=== PATIENT | male | born 1945 | race Caucasian/White ===

== ENCOUNTER 2020-06-08 15:23 | Inpatient (IN) | payer OTHER, MEDICARE ==
[~2020-06-08] VITALS: Ht 170.2 cm; Wt 105.0 kg
[~2020-06-08 15:23] MED LIST: ATORVASTATIN CA80 M1 PO; FINA5; FURO20 PO; FURO40; HUMULIN 70100 UNIT/4 SC; HYDRA50 PO; LOSA50 PO; Novolin R100 UNIT/M SC; PACERONE100 M1 PO; POTCHL20ER PO
[2020-06-08 16:00] LABS: BASOPHILS ABSOLUTE AUTO 0.05 K/mm3 (0.00-0.23); BASOPHILS PERCENT AUTO 1 % (0-2); EOSINOPHILS ABSOLUTE AUTO 0.26 K/mm3 (0.00-0.68); EOSINOPHILS PERCENT AUTO 4 % (0-6); Hematocrit 35.2 % (37.0-53.0); IMMATURE GRAN ABSOLUTE AUTO 0.11 K/mm3 (0.00-0.10); IMMATURE GRAN PERCENT AUTO 2 % (0-1); LYMPHOCYTES ABSOLUTE AUTO 1.38 K/mm3 (0.84-5.20); LYMPHOCYTES PERCENT AUTO 20 % (21-46); MONOCYTES ABSOLUTE AUTO 0.62 K/mm3 (0.16-1.47); MONOCYTES PERCENT AUTO 9 % (4-13); Mean Corpuscular HGB Conc 31.3 g/dL (31.5-36.5); Mean Corpuscular Volume 96 fL (80-100); Mean Platelet Volume 11.9 fL (9.1-12.4); NEUTROPHILS ABSOLUTE AUTO 4.52 K/mm3 (1.96-9.15); NEUTROPHILS PERCENT AUTO 65 % (41-73); Platelet Count 152 K/mm3 (150-400); RDW Coefficient Variation 13.5 % (11.7-14.2); Red Blood Cell Count 3.67 M/mm3 (4.30-5.90); White Blood Cell Count 6.94 K/mm3 (4.00-11.30)
[2020-06-08 16:13] LABS: Albumin/Globulin Ratio 0.9 (0.8-1.8); Bilirubin, Total 0.3 mg/dL (0.1-1.0); Bun/Creatinine Ratio 23.6 (12.0-20.0); Calcium, Blood 8.9 mg/dL (8.5-10.1); Creatinine, Blood 1.44 mg/dL (0.60-1.20); Globulin, Blood 3.4 g/dL (2.2-4.0); Potassium, Blood 4.4 mmol/L (3.5-5.5); Total Protein, Blood 6.4 g/dL (6.4-8.2)
[2020-06-08 16:25] LABS: Source, Urine Clean Catch
[2020-06-08 16:29] LABS: Appearance, Urine Clear (Clear); Bilirubin, Urine Neg (Neg); Blood, Urine Neg (Neg); Color, Urine Yellow (P-Yellow); Glucose Qualitative, Urine Neg (Neg); Ketones, Urine Neg (Neg); Leukocyte Esterase, Urine Neg (Neg); Nitrite, Urine Neg (Neg); Protein, Urine 2+ (Neg); Specific Gravity, Urine 1.015 (1.003-1.022); Urobilinogen, Urine NORM (Normal)
[2020-06-08 16:37] LABS: Bacteria Rare /hpf; Red Blood Cells, Urine 0-2 /hpf (0-2); Squamous Epithelial Cells Few /hpf (Few); White Blood Cells, Urine 0-2 /hpf (0-5)
[2020-06-08 16:40] LABS: U Amphetamine Screen Not Detected; U Barbituate Screen Not Detected; U Benzodiazapine Screen Not Detected; U Buprenorphine Screen Not Detected; U Cannabinoids Screen DETECTED; U Cocaine Screen Not Detected; U Methadone Screen Not Detected; U Methamphetamine Screen Not Detected; U Opiates Screen Not Detected; U Oxycodone Screen Not Detected; U Phencyclidine Screen Not Detected; U Propoxyphene Screen Not Detected
[2020-06-08] MEDS ORDERED: POTA10T PO (21:09)
[2020-06-08] MEDS ORDERED: ALOGLIPTIN12.5 M1 PO (21:13)
[2020-06-08] MEDS ORDERED: METF500C PO (21:16)
[2020-06-08] MEDS ORDERED: VENL150ER PO (21:17)
--- NOTE | 2020-06-08 21:18 | NUR ---
ADMIT PT ARRIVED TO FLOOR AROUND 2044, SLIDE TRANSFER TO BED. ORIENTED TO RM & CALL LIGHT. WILL MONITOR.
[2020-06-08] MEDS ORDERED: GABA300 PO (22:01)
[2020-06-08] MEDS ORDERED: TRAZ100 PO (22:01)
[2020-06-08] MEDS ORDERED: STIOLTO RESPIMAT4 G1 INH (22:03)
[2020-06-09 04:40] LABS: Hematocrit 34.8 % (37.0-53.0); Mean Corpuscular HGB 29.8 pg (26.0-34.0); Mean Corpuscular HGB Conc 31.6 g/dL (31.5-36.5); Mean Corpuscular Volume 94 fL (80-100); Mean Platelet Volume 11.8 fL (9.1-12.4); Platelet Count 151 K/mm3 (150-400); RDW Coefficient Variation 13.3 % (11.7-14.2); RDW Standard Deviation 46.7 fL (35.1-46.3); Red Blood Cell Count 3.69 M/mm3 (4.30-5.90); White Blood Cell Count 5.38 K/mm3 (4.00-11.30)
--- NOTE | 2020-06-09 04:43 | NUR ---
SHIFT SUMMARY AOX4. FOLLOWS DIRECTIONS, ANSWERS QUESTIONS APPROPRIATE. NO SLURRED SPEECH SINCE ARRIVING TO FLOOR. DENIES FACIAL WEAKNESS, NO FACIAL DROOP. L HAND REGIONAL PROPERTY MANAGER SLIGHTLY WEAKER THEN R LAST NIGHT & PT REPORTS HE FEELS A LITTLE WEAKER L ARM, EQUAL PEDAL PUSHES. VSS. TELE SB @58. REPORTS 2/10 R HIP SCIATIC PAIN, STATES HE TAKES 300MG GABAPENTIN FOR THIS, INFORMED ELAINE W & SHE ORDERED 1X DOSE GABAPENTIN. DENIES N/V OR DYSPNEA. HS CBG @94. PT PLANNED TO HAVE MRI, ECHO & SPEECH EVAL THIS AM. PT HASNT SHOWN S/S CHOKING/ASPIRATING c PO INTAKE. CALL LIGHT IN REACH & PT ABLE TO MAKE NEEDS KNOWN, WCTM.
[2020-06-09 05:00] LABS: Anion Gap 4 mmol/L (6-16); Blood Urea Nitrogen 30 mg/dL (8-24); Bun/Creatinine Ratio 22.6 (12.0-20.0); CHOL/HDL RATIO 3.2; CO2, Blood 30 mmol/L (21-32); Calcium, Blood 8.6 mg/dL (8.5-10.1); Chloride, Blood 112 mmol/L (98-108); Cholesterol 119 mg/dL (50-200); Creatinine, Blood 1.33 mg/dL (0.60-1.20); Glomerular Filtration Rate 55 (60-); Glucose, Blood 92 mg/dL (70-99); HDL Cholesterol 37 mg/dL (>39); LDL/HDL RATIO 1.7; Low Density Lipoprotein Chol 61 mg/dL (0-110); Potassium, Blood 4.4 mmol/L (3.5-5.5); Sodium, Blood 146 mmol/L (136-145); Triglycerides 104 mg/dL (30-160); Very Low Density Lipoprot Chol 20 mg/dL (6-32)
--- NOTE | 2020-06-09 10:18 | NUR ---
1015 SPOKE WITH PTS DAUGHTER . SHE STATED HER FATHER TOOK BOTH GABAPENTIN AND TRAZODONE PRIOR TO HAVING HIS EPISODE OF SLURRED SPEACH. PT HAS BEEN TAKING TRAZADONE AT NIGHT AND JUST STARTED THE GABAPENTIN. HE TOOK 200MG OF TRAZADONE AND 300 OF GABAPENTIN AT BEDTIME. PT HAS NO NEURO DEFICITS AT THIS TIME , NO SLURRED SPEACH. LEFT MARKETING AND OUTREACH COORDINATOR SLIGHTLY WEAKER THAN RIGHT WHICH IS BASELINE FOR PT D/T BRAIN BLEED FROM 03/12.
--- NOTE | 2020-06-09 11:10 | NUR ---
Echocardiogram completed.
[2020-06-09] MEDS ORDERED: ASPI81CH PO (14:08)
--- NOTE | 2020-06-09 14:17 | NUR ---
1415 PT TO DISCHARGE HOME. IV REMOVED. NO SS OF INFECTION NOTED. NURSE EDUCATED ON MEDICATIONS. PT [facility] FOLLOW [facility] WITH [facility].PT TAKEN DOWN BY WC WITH STAFF AND TAKEN HOME BY DAUGHTER.
== END 2020-06-09 14:16 | disposition home or self-care (01) | DRG 92 ==
LOC: ER 15:23 → MEDS 20:00
PROVIDERS: Emergency Medicine; ADMIT Internal Medicine
DX: R47.81 Slurred speech (principal); I69.254 Hemiplegia and hemiparesis following other nontraumatic intracranial hemorrhage affecting left non-dominant side; R53.1 Weakness; I48.0 Paroxysmal atrial fibrillation; Z66 Do not resuscitate; T43.215A Adverse effect of selective serotonin and norepinephrine reuptake inhibitors, initial encounter; T42.6X5A Adverse effect of other antiepileptic and sedative-hypnotic drugs, initial encounter; Z68.37 Body mass index [BMI] 37.0-37.9, adult; E66.9 Obesity, unspecified; I25.10 Atherosclerotic heart disease of native coronary artery without angina pectoris; E11.22 Type 2 diabetes mellitus with diabetic chronic kidney disease; E11.51 Type 2 diabetes mellitus with diabetic peripheral angiopathy without gangrene; N18.30 Chronic kidney disease, stage 3 unspecified; J44.9 Chronic obstructive pulmonary disease, unspecified; G47.33 Obstructive sleep apnea (adult) (pediatric); I25.2 Old myocardial infarction; I12.9 Hypertensive chronic kidney disease with stage 1 through stage 4 chronic kidney disease, or unspecified chronic kidney disease; F43.10 Post-traumatic stress disorder, unspecified; N40.0 Benign prostatic hyperplasia without lower urinary tract symptoms; Z79.4 Long term (current) use of insulin; Z79.899 Other long term (current) drug therapy; Z87.891 Personal history of nicotine dependence; Z95.1 Presence of aortocoronary bypass graft; Z88.8 Allergy status to other drugs, medicaments and biological substances; X58.XXXA Exposure to other specified factors, initial encounter
CPT/HCPCS: 36415; 51701; 70450; 70496; 70498; 70551; 80048; 80053; 80061; 81001; 82947; 83036; 83735; 85025; 85027; 92610; 93005; 93010; 93306; 97116; 97161; 97530; 99285-25; A9270; J1650; Q9967

== ENCOUNTER 2020-10-16 19:44 | Emergency (ER) | payer OTHER, MEDICARE ==
[~2020-10-16] VITALS: Ht 170.2 cm; Wt 104.3 kg
[~2020-10-16 19:44] MED LIST changes: +ALOGLIPTIN12.5 M1 PO; +ASPI81CH PO; +GABA300 PO; +METF500C PO; +POTA10T PO; +STIOLTO RESPIMAT4 G1 INH; +TRAZ100 PO; +VENL150ER PO
== END 2020-10-16 22:22 | disposition left against medical advice (07) ==
LOC: ER 19:44
DX: S09.91XA Unspecified injury of ear, initial encounter (principal); Z53.21 Procedure and treatment not carried out due to patient leaving prior to being seen by health care provider; X58.XXXA Exposure to other specified factors, initial encounter
CPT/HCPCS: 99282

== ENCOUNTER 2021-06-03 14:46 | Emergency (ER) | payer OTHER ==
[~2021-06-03] VITALS: Ht 170.2 cm; Wt 100.7 kg
[~2021-06-03 14:46] MED LIST changes: +ATOR40TA PO; -ATORVASTATIN CA80 M1 PO; +KLOR-CON 1010 ME6 PO; -POTCHL20ER PO
[2021-06-03 15:26] LABS: Hematocrit 32.9 % (37.0-53.0); Hemoglobin 10.8 g/dL (13.5-17.5); Mean Corpuscular HGB 31.5 pg (26.0-34.0); Mean Corpuscular HGB Conc 32.8 g/dL (31.5-36.5); Mean Corpuscular Volume 96 fL (80-100); Mean Platelet Volume 11.7 fL (9.1-12.4); Platelet Count 161 K/mm3 (150-400); RDW Coefficient Variation 13.6 % (11.7-14.2); RDW Standard Deviation 47.9 fL (35.1-46.3); Red Blood Cell Count 3.43 M/mm3 (4.30-5.90); White Blood Cell Count 12.94 K/mm3 (4.00-11.30)
[2021-06-03 15:44] LABS: Albumin, Blood 2.4 g/dL (3.4-5.0); Albumin/Globulin Ratio 0.7 (0.8-1.8); Bilirubin, Total 0.6 mg/dL (0.1-1.0); Bun/Creatinine Ratio 21.6 (12.0-20.0); Calcium, Blood 8.4 mg/dL (8.5-10.1); Creatinine, Blood 1.9 mg/dL (0.60-1.20); Globulin, Blood 3.3 g/dL (2.2-4.0); Potassium, Blood 3.9 mmol/L (3.5-5.5); Total Protein, Blood 5.7 g/dL (6.4-8.2)
[2021-06-03] MEDS ORDERED: CENTRUM SILVER1 EAC2 PO (15:49)
[2021-06-03] MEDS ORDERED: FERROUS GLUCON324 M2 PO (15:49)
[2021-06-03] MEDS ORDERED: FOLI1 PO (15:50)
[2021-06-03] MEDS ORDERED: ASCO500 PO (15:50)
[2021-06-03 15:54] LABS: BASOPHILS ABSOLUTE MAN 0.12 K/mm3 (0.00-0.23); BASOPHILS PERCENT MAN 1 % (0-2); EOSINOPHILS ABSOLUTE MAN 0.25 K/mm3 (0.00-0.68); EOSINOPHILS PERCENT MAN 2 % (0-6); LYMPHOCYTES ABSOLUTE MAN 1.29 K/mm3 (0.84-5.20); LYMPHOCYTES PERCENT MAN 10 % (21-46); METAMYELOCYTE ABSOLUTE MAN 0.12 K/mm3 (0.00-0.00); METAMYELOCYTE PERCENT MAN 1 % (0-0); MONOCYTES ABSOLUTE MAN 1.68 K/mm3 (0.16-1.47); MONOCYTES PERCENT MAN 13 % (4-13); MYELOCYTE ABSOLUTE MAN 0.25 K/mm3 (0.00-0.00); MYELOCYTE PERCENT MAN 2 % (0-0); NEUTROPHILS ABSOLUTE MAN 9.18 K/mm3 (1.96-9.15); SEG NEUTROPHILS PERCENT MAN 71 % (41-73); TOTAL CELLS COUNTED 100
[2021-06-03 17:53] LABS: Source, Urine Clean Catch
[2021-06-03 17:57] LABS: Appearance, Urine Clear (Clear); Bilirubin, Urine Neg (Neg); Blood, Urine Neg (Neg); Color, Urine Yellow (P-Yellow); Glucose Qualitative, Urine Neg (Neg); Ketones, Urine Neg (Neg); Leukocyte Esterase, Urine Neg (Neg); Nitrite, Urine Neg (Neg); Protein, Urine 3+ (Neg); Urobilinogen, Urine NORM (Normal)
[2021-06-03 18:24] LABS: Bacteria Mod /hpf
[2021-06-03 18:25] LABS: Amorphous Light (0-Heavy); Red Blood Cells, Urine Not Seen /hpf (0-2); Squamous Epithelial Cells Rare /hpf (Few); White Blood Cells, Urine Rare /hpf (0-5)
[2021-06-03] MEDS ORDERED: METR500 PO (19:14)
[2021-06-03] MEDS ORDERED: AMOX-CLAV 875-1 EAC1 PO (19:22)
[2021-06-03] MEDS ORDERED: ALEVAZOL56.7 G1 TOP (19:27)
== END 2021-06-03 19:55 | disposition home or self-care (01) ==
LOC: ER 14:46
PROVIDERS: Student in an Organized Health Care Education/Training Program
DX: R19.7 Diarrhea, unspecified (principal); E11.9 Type 2 diabetes mellitus without complications; J44.9 Chronic obstructive pulmonary disease, unspecified; I25.2 Old myocardial infarction; Z87.891 Personal history of nicotine dependence; Z79.899 Other long term (current) drug therapy; Z88.5 Allergy status to narcotic agent; Z88.8 Allergy status to other drugs, medicaments and biological substances
CPT/HCPCS: 36415; 74177; 80053; 81001; 85025; 87086; 93005; 93010; 99284-25; A9270; J7030; Q9967

== ENCOUNTER 2021-06-04 12:14 | Inpatient (IN) | payer OTHER ==
[~2021-06-04] VITALS: Ht 170.2 cm; Wt 58.1 kg
[~2021-06-04 12:14] MED LIST changes: +ALEVAZOL56.7 G1 TOP; +AMOX-CLAV 875-1 EAC1 PO; +ASCO500 PO; +CENTRUM SILVER1 EAC2 PO; +FERROUS GLUCON324 M2 PO; +FOLI1 PO; +METR500 PO
[2021-06-04 12:56] LABS: Hemoglobin 11.4 g/dL (13.5-17.5); Mean Corpuscular HGB 31.2 pg (26.0-34.0); Mean Corpuscular HGB Conc 31.7 g/dL (31.5-36.5); Mean Corpuscular Volume 99 fL (80-100); Mean Platelet Volume 11.4 fL (9.1-12.4); Platelet Count 167 K/mm3 (150-400); RDW Coefficient Variation 13.8 % (11.7-14.2); RDW Standard Deviation 50.4 fL (35.1-46.3); Red Blood Cell Count 3.65 M/mm3 (4.30-5.90)
[2021-06-04 13:11] LABS: Albumin, Blood 2.3 g/dL (3.4-5.0); Albumin/Globulin Ratio 0.6 (0.8-1.8); Bilirubin, Total 0.5 mg/dL (0.1-1.0); Calcium, Blood 8.2 mg/dL (8.5-10.1); Globulin, Blood 3.6 g/dL (2.2-4.0); Potassium, Blood 3.9 mmol/L (3.5-5.5); Total Protein, Blood 5.9 g/dL (6.4-8.2)
[2021-06-04 13:18] LABS: BAND PERCENT MAN 9 % (0-8); BASOPHILS ABSOLUTE MAN 0.36 K/mm3 (0.00-0.23); BASOPHILS PERCENT MAN 2 % (0-2); EOSINOPHILS ABSOLUTE MAN 0.36 K/mm3 (0.00-0.68); EOSINOPHILS PERCENT MAN 2 % (0-6); LYMPHOCYTES ABSOLUTE MAN 1.44 K/mm3 (0.84-5.20); LYMPHOCYTES PERCENT MAN 8 % (21-46); METAMYELOCYTE ABSOLUTE MAN 0.18 K/mm3 (0.00-0.00); METAMYELOCYTE PERCENT MAN 1 % (0-0); MONOCYTES ABSOLUTE MAN 1.44 K/mm3 (0.16-1.47); MONOCYTES PERCENT MAN 8 % (4-13); MYELOCYTE ABSOLUTE MAN 0.18 K/mm3 (0.00-0.00); MYELOCYTE PERCENT MAN 1 % (0-0); NEUTROPHILS ABSOLUTE MAN 14.11 K/mm3 (1.96-9.15); SEG NEUTROPHILS PERCENT MAN 69 % (41-73); TOTAL CELLS COUNTED 100
[2021-06-04 18:04] LABS: Influenza A, PCR NEGATIVE (NEGATIVE); Influenza B, PCR NEGATIVE (NEGATIVE); Resp Syncytial Virus, PCR NEGATIVE (NEGATIVE); SARS-Cov-2 (COVID-19) PCR, MMC NEGATIVE (NEGATIVE)
[2021-06-05 04:06] LABS: BASOPHILS PERCENT AUTO 1 % (0-2); EOSINOPHILS ABSOLUTE AUTO 0.35 K/mm3 (0.00-0.68); EOSINOPHILS PERCENT AUTO 2 % (0-6); Hematocrit 32.3 % (37.0-53.0); Hemoglobin 10.5 g/dL (13.5-17.5); IMMATURE GRAN ABSOLUTE AUTO 0.28 K/mm3 (0.00-0.10); IMMATURE GRAN PERCENT AUTO 2 % (0-1); LYMPHOCYTES ABSOLUTE AUTO 0.97 K/mm3 (0.84-5.20); LYMPHOCYTES PERCENT AUTO 6 % (21-46); MONOCYTES ABSOLUTE AUTO 1.85 K/mm3 (0.16-1.47); MONOCYTES PERCENT AUTO 12 % (4-13); Mean Corpuscular HGB 31.3 pg (26.0-34.0); Mean Corpuscular HGB Conc 32.5 g/dL (31.5-36.5); Mean Corpuscular Volume 96 fL (80-100); Mean Platelet Volume 11.2 fL (9.1-12.4); NEUTROPHILS PERCENT AUTO 77 % (41-73); Platelet Count 169 K/mm3 (150-400); RDW Coefficient Variation 13.6 % (11.7-14.2); RDW Standard Deviation 48.3 fL (35.1-46.3); Red Blood Cell Count 3.36 M/mm3 (4.30-5.90); White Blood Cell Count 15.55 K/mm3 (4.00-11.30)
--- NOTE | 2021-06-05 04:11 | NUR ---
SHIFT SUMMARY PT HAD A MOSTLY UNEVENTFUL NIGHT. SLEPT OFF AND ON THROUGHOUT THE NIGHT. UNHAPPY ABOUT CLEAR LIQUID DIET BUT OTHERWISE PT HAD NO COMPLAINTS. DENIES ANY PAIN OR NAUSEA. PT REPORTS HAVING DIARRHEA X 3 WEEKS AT HOME. NO BOWEL MOVEMENTS THIS EVENING. ON CONTACT PRECAUTIONS FOR RULE OUT CDIFF. PT VERY WEAK. LITTLE MOBILITY IN LEFT SIDE DUE TO PREVIOUS STROKE. INCONTINENT/CONTINENT OF URINE. PT REMAINED IN BED. TURNED Q 2 HRS. VITAL SIGNS STABLE. BIPAP PLACED BY RT PT USES A CPAP AT HOME AND DID NOT BRING HIS IN.
[2021-06-05 04:25] LABS: Albumin, Blood 2.1 g/dL (3.4-5.0); Albumin/Globulin Ratio 0.7 (0.8-1.8); Bilirubin, Total 0.4 mg/dL (0.1-1.0); Bun/Creatinine Ratio 18.3 (12.0-20.0); Calcium, Blood 7.7 mg/dL (8.5-10.1); Creatinine, Blood 2.02 mg/dL (0.60-1.20); Globulin, Blood 3.1 g/dL (2.2-4.0); Potassium, Blood 3.7 mmol/L (3.5-5.5); Total Protein, Blood 5.2 g/dL (6.4-8.2)
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
--- NOTE | 2021-06-05 17:59 | NUR ---
SHIFT SUMMARY- PT IS PLESATN AND COOPERATIVE. HE IS CONFUSED THIS SHIFT. HE IS EATING AND DRINKING WELL. HE IS USING THE URINAL WITH ASSISTANCE. HIS FAMILY HAS VISITED THROUGHOUT THIS SHIFT. HE SLEPT INTERMITENTLY. HIS DAUGHTER REMOVED HIS RINGS DUE TO SWELLING IN HIS FINGERS. HIS BED IS IN THE LOW POSITON AND CALL LIGHT IS WITIN REACH.
[2021-06-06 04:39] LABS: Hematocrit 32.4 % (37.0-53.0); Hemoglobin 10.5 g/dL (13.5-17.5); Mean Corpuscular HGB 30.8 pg (26.0-34.0); Mean Corpuscular HGB Conc 32.4 g/dL (31.5-36.5); Mean Corpuscular Volume 95 fL (80-100); Mean Platelet Volume 11.1 fL (9.1-12.4); Platelet Count 174 K/mm3 (150-400); RDW Coefficient Variation 13.7 % (11.7-14.2); RDW Standard Deviation 47.8 fL (35.1-46.3); Red Blood Cell Count 3.41 M/mm3 (4.30-5.90); White Blood Cell Count 16.58 K/mm3 (4.00-11.30)
--- NOTE | 2021-06-06 04:48 | NUR ---
SHIFT SUMMARY PT APPEARS MORE CONFUSED THIS EVENING COMPARED TO THE NIGHT BEFORE. REACHING IN THE AIR FOR THINGS AT TIMES THAT ARE NOT THERE. UNSURE OF WHERE HE IS. PT HAS NO COMPLAINTS OTHER THAN STATING THAT HE TAKES CBD AT HOME AND IS NOT RECEIVING IT HERE. PT DENIES ANY PAIN. SLEPT INTERMITTENTLY. APPEARS SOB AT TIMES BUT DENIES IT. CPAP ON AT NOC. FLACCID ON L SIDE. SOME REDNESS TO PANNUS FOLDS. ANTIFUNGAL CREAM APPLIED. PT ONLY VOIDED ONCE THIS EVENING. BLADDER SCAN READING 338 ML. PT ENCOURAGED TO VOID AFTER AND WAS ABLE TO VOID 275 ML. URINE IS CONCENTRATED. VITAL SIGNS STABLE. PT HAD AN UNEVENTFUL NIGHT.
[2021-06-06 04:59] LABS: Albumin, Blood 1.9 g/dL (3.4-5.0); Anion Gap 8 mmol/L (6-16); Blood Urea Nitrogen 40 mg/dL (8-24); Bun/Creatinine Ratio 19.3 (12.0-20.0); CO2, Blood 20 mmol/L (21-32); Chloride, Blood 111 mmol/L (98-108); Creatinine, Blood 2.07 mg/dL (0.60-1.20); Glomerular Filtration Rate 31 (60-); Glucose, Blood 119 mg/dL (70-99); Phosphorus, Blood 3.3 mg/dL (2.5-4.9); Sodium, Blood 139 mmol/L (136-145)
[2021-06-06 06:07] LABS: BAND PERCENT MAN 12 % (0-8); BASOPHILS PERCENT MAN 0 % (0-2); EOSINOPHILS ABSOLUTE MAN 0.49 K/mm3 (0.00-0.68); EOSINOPHILS PERCENT MAN 3 % (0-6); LYMPHOCYTES ABSOLUTE MAN 1.32 K/mm3 (0.84-5.20); LYMPHOCYTES PERCENT MAN 8 % (21-46); METAMYELOCYTE ABSOLUTE MAN 0.33 K/mm3 (0.00-0.00); METAMYELOCYTE PERCENT MAN 2 % (0-0); MONOCYTES ABSOLUTE MAN 1.49 K/mm3 (0.16-1.47); MONOCYTES PERCENT MAN 9 % (4-13); NEUTROPHILS ABSOLUTE MAN 12.93 K/mm3 (1.96-9.15); SEG NEUTROPHILS PERCENT MAN 66 % (41-73); TOTAL CELLS COUNTED 100
--- NOTE | 2021-06-06 15:02 | NUR ---
SHIFT SUMMARY PT AWAKE AT START OF SHIFT, RECEIVING RT TX. PT WEAK AND SOMETIMES SLOW TO RESPOND. L SIDE WEAKNESS NOTED. PT STATES THAT HE CAN MOVE HIS L ARM, BUT NO MOVEMENT NOTED. DR STAHL IN TO SEE PT AND WANTING PT TO GET OOB AND UP TO CHAIR. PT'S EQUIPMENT MECHANIC HERE TO SEE PT, REPORTING THAT PT IS MOBILE AT HOME AND ABLE TO AMBULATE WITH AND WITHOUT FWW. PT/OT ORDERED AND HERE TO SEE PT AT LUNCH. PT/OT UNABLE TO GET PT OOB. PT NOT EVEN ABLE TO SIT UP TO EOB ON HIS OWN. PT'S DAUGHTER TO BE NOTIFIED FOR CLARIFICATION. NO C/O PAIN. LUNGS T/O DIMINISHED WITH SCATTERED EXP WHEEZES. IVF'S INFUSING PER EMAR. PT IS PLEASANT AND CO-OP WITH CARE. DENIES FURTHER NEEDS AT THIS TIME. CALL LT IN REACH.
--- NOTE | 2021-06-06 15:26 | NUR ---
DAUGHTER NOTIFIED FOR CLARIFICATION ON PT'S ABILITY TO AMBULATE. DAUGHTER REPORTED PT ABLE TO STAND, GET IN TRUCK, AND WALK UP STAIRS PRIOR TO DIARRHEA AND ADMISSION. PER SHIFT REPORT, PT HAD DIARRHEA X3 WEEKS BEFORE ADMISSION. DAUGHTER REPORTED THAT BY 4TH DAY OF DIARRHEA, PT HAS BEEN BED BOUND AND NONAMBULATORY. PT BECAME TOO WEAK AND DEHYDRATED WITH DIARRHEA TO GET OOB.
[2021-06-07 05:02] LABS: Hemoglobin 10.9 g/dL (13.5-17.5); Mean Corpuscular HGB 31.1 pg (26.0-34.0); Mean Corpuscular Volume 94 fL (80-100); Mean Platelet Volume 11.4 fL (9.1-12.4); Platelet Count 211 K/mm3 (150-400); RDW Coefficient Variation 13.9 % (11.7-14.2); RDW Standard Deviation 47.7 fL (35.1-46.3); White Blood Cell Count 18.64 K/mm3 (4.00-11.30)
--- NOTE | 2021-06-07 05:15 | NUR ---
IN STORE REPRESENTATIVE SUMMARY ADMITTED FOR ACUTE KIDNEY FAILURE. PT IS A FULL CODE. 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 PT IS ALERT AND ORIENTED X3-4. 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 HE HAS NOT HAD A BM SINCE ADMISSION. HE IS INCONTINENT OF URINE. PT CURRENTLY ON BEDREST.
[2021-06-07 05:22] LABS: Albumin, Blood 1.9 g/dL (3.4-5.0); Anion Gap 6 mmol/L (6-16); Blood Urea Nitrogen 39 mg/dL (8-24); Bun/Creatinine Ratio 25.3 (12.0-20.0); CO2, Blood 21 mmol/L (21-32); Calcium, Blood 8.1 mg/dL (8.5-10.1); Chloride, Blood 114 mmol/L (98-108); Creatinine, Blood 1.54 mg/dL (0.60-1.20); Glomerular Filtration Rate 44 (60-); Glucose, Blood 162 mg/dL (70-99); Phosphorus, Blood 3.1 mg/dL (2.5-4.9); Potassium, Blood 4.2 mmol/L (3.5-5.5); Sodium, Blood 141 mmol/L (136-145)
[2021-06-07 05:45] LABS: BAND PERCENT MAN 6 % (0-8); BASOPHILS PERCENT MAN 0 % (0-2); EOSINOPHILS ABSOLUTE MAN 0.55 K/mm3 (0.00-0.68); EOSINOPHILS PERCENT MAN 3 % (0-6); LYMPHOCYTES PERCENT MAN 7 % (21-46); MONOCYTES ABSOLUTE MAN 0.37 K/mm3 (0.16-1.47); MONOCYTES PERCENT MAN 2 % (4-13); MYELOCYTE ABSOLUTE MAN 0.18 K/mm3 (0.00-0.00); MYELOCYTE PERCENT MAN 1 % (0-0); NEUTROPHILS ABSOLUTE MAN 16.21 K/mm3 (1.96-9.15); SEG NEUTROPHILS PERCENT MAN 81 % (41-73); TOTAL CELLS COUNTED 100
[2021-06-07] MEDS ORDERED: FAMO40 PO (07:54)
--- NOTE | 2021-06-07 14:49 | NUR ---
SHIFT SUMMARY PT RESTING QUIETLY AT START OF SHIFT. WOKE EASILY FOR CARE. VERY WEAK AND DECONDITIONED WITH L SIDE FLACCID. PT IS MORBIDLY OBESE AND UNABLE TO MOVE MUCH AT ALL; LEANS TO R SIDE IN BED. HEAVY CARE TO STRAIGHTEN AND REPOSITION. INCONTINENT OF BLADDER. BOWEL CARE ORDERED AND GIVEN. PT ASSISTED TO BED OSMAN W/O SUCCESS. IVF'S STOPPED. PT DRINKING WELL. ABLE TO EAT ON HIS OWN, THOUGH MESSY AT TIMES. LUNGS T/O DIMINISHED WITH INSP/EXP WHEEZES. C/O "HEART BURN" THIS AM AND REPORTED THAT HE USUALLY TAKES PEPCID. DR HENDERSON NOTIFIED. NEW ORDERS PLACED. DR HENDERSON IN TO SEE PT AND DISCUSS PLAN OF CARE. CONSULT ORDERED AND CALLED TO DR GARVEY'S OFFICE AND ANS. OFFICE HELP UNABLE TO GIVE CONSULT TO DR GARVEY. ANS CALLED AND WILL NOTIFY DR GARVEY TODAY. PT DENIED FURTHER NEEDS. CALL LT IN REACH. ABLE TO MAKE NEEDS KNOWN.
--- NOTE | 2021-06-07 20:10 | NUR ---
BED BATH AND LINEN CHANGE GIVEN AFTER BREAKFAST. LATER THIS AFTERNOON, PT STARTED VOMITING WHAT APPEARED TO BE BROWN COFFEE GROUND EMESIS; SIGNIFICANT ABOUT OF EMESIS. PT CLEANED AND CHANGED AGAIN. PT FEELING BETTER FOR A WHILE, BUT DECLINED TO EAT DINNER. PT THEN STARTED VOMITING BROWN COFFEE GROUND EMESIS AGAIN DURING SHIFT CHANGE; ABOUT 300cc. PT CLEANED AND GIVEN EMESIS BAG. REPORT GIVEN TO ONCOMING RN.
--- NOTE | 2021-06-08 03:20 | NUR ---
PSYCHIATRIST SUMMARY PATIENT HAD A FAIR SHIFT. STILL VOMITING FECAL LOOKING VOMITUS. ABDOMINAL SOUNDS VERY FAINT. HAD PAIN MED NEEDED. V/S CHECKED AND RECORDED. WILL CONTINUE TO MONIOTR HER.
[2021-06-08 05:00] LABS: Hematocrit 35.5 % (37.0-53.0); Hemoglobin 11.7 g/dL (13.5-17.5); Mean Corpuscular HGB 30.8 pg (26.0-34.0); Mean Corpuscular Volume 93 fL (80-100); Mean Platelet Volume 10.6 fL (9.1-12.4); Platelet Count 268 K/mm3 (150-400); White Blood Cell Count 17.88 K/mm3 (4.00-11.30)
[2021-06-08 05:31] LABS: Bun/Creatinine Ratio 35.1 (12.0-20.0); Calcium, Blood 8.7 mg/dL (8.5-10.1); Creatinine, Blood 1.51 mg/dL (0.60-1.20); Potassium, Blood 4.5 mmol/L (3.5-5.5)
[2021-06-08 08:11] LABS: IMMUNOGLOBULIN A, QN, SERUM 316 mg/dL (61-437); IMMUNOGLOBULIN G, QN, SERUM 664 mg/dL (603-1613); IMMUNOGLOBULIN M, QN, SERUM 75 mg/dL (15-143)
--- NOTE | 2021-06-08 11:15 | NUR ---
NG TUBE PLACED PER MD ORDER IN L NARE. INTIALLY 600ML'S OF DARK BROWN OUTPUT WAS SUCTIONED OUT. PATIENT PLACED ON LOW INTERMITTENT SUCTION. PATIENT TOLERATED WELL.
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
--- NOTE | 2021-06-08 19:57 | NUR ---
END OF SHIFT NOTE: THE PATIENT STARTED THE SHIFT OUT WITH NAUSEA AND ABDOMINAL DISCOMFORT. NG TUBE PLACED PER ORDERS. PATIENT VOMITED THROUGHOUT PLACEMENT (DARK BROWN, THICK, FOUL SMELLING). PATIENT HAD 750 ML OUTPUT THROUGH THE NG TUBE BEFORE HE PULLED IT. PATIENT DENIED NAUSEA FOR THE REST OF THE SHIFT. PATIENT'S ABDOMINAL DISTENTION DECREASED ONCE THE NG TUBE WAS PLACED. HOWEVER, ONCE IT WAS PULLED, THE DISTENTION STARTED TO INCREASE. BY THE END OF SHIFT, PATIENT REPORT ABDOMINAL DISCOMFORT AGAIN. RELATED TO PRN BLOOD PRESSURE ORDERS, PATIENT REQUIRED TELEMETRY. NEAR THE END OF SHIFT TELEMETRY CALLED TO NOTIFY RN OF NEED FOR REPEAT EKG. NOTIFIED DR. HENDERSON AND RECEIVED ORDER. PATIENT DENIED CHEST PAIN OR SHORTNESS OF BREATH THROUGHOUT. EKG OBTAINED. COMPARED TO PRIOR EKG. 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 WOOL WASHING MACHINE OPERATOR RN NOTIFIED. PATIENT HAD NO BOWEL MOVEMENTS. DIFFICULT TO ASSESS IF THE PATIENT IS PASSING FLATUS (PATIENT SAYS THAT HE IS).
[2021-06-09 04:30] LABS: Hematocrit 29.9 % (37.0-53.0); Hemoglobin 9.9 g/dL (13.5-17.5); Mean Corpuscular HGB 30.9 pg (26.0-34.0); Mean Corpuscular HGB Conc 33.1 g/dL (31.5-36.5); Mean Corpuscular Volume 93 fL (80-100); Mean Platelet Volume 11.1 fL (9.1-12.4); Platelet Count 204 K/mm3 (150-400); RDW Coefficient Variation 14.1 % (11.7-14.2); RDW Standard Deviation 47.6 fL (35.1-46.3); White Blood Cell Count 13.18 K/mm3 (4.00-11.30)
[2021-06-09 04:42] LABS: Bun/Creatinine Ratio 42.1 (12.0-20.0); Calcium, Blood 8.2 mg/dL (8.5-10.1); Creatinine, Blood 1.45 mg/dL (0.60-1.20); Potassium, Blood 4.3 mmol/L (3.5-5.5)
--- NOTE | 2021-06-09 06:46 | NUR ---
TRAFFIC CIRCUIT ENGINEER SUMMARY PATIENT HAD A FAIR SHIFT. INITIALLY DID NOT COMPLAIN OF PAIN OR NAUSEA. BUT EARLY THIS MORNING HE STATED HE WAS IN PAIN, THE PRODUCT DEVELOPMENT WORKER ALREADY GOT ORDER FOR PAIN AND SO HE GOT THAT AND NGT WAS RE-INSERTED AND IT DRAINED ABOUT 300 BILIOUS AFFLUENT. HE GOT RELIEVED AND HE PULLED THE NGT OUT AGAIN. WILL CONTINUE TO MONITOR HIM.
--- NOTE | 2021-06-09 12:27 | NUR ---
A FRIEND OF PATIENT NAMED FLORA CALLED AND REPORTED THAT THE [employer] WANTED TO SPEAK WITH PATIENT. THE LADY (Flora) STATED THAT THE BANK WAS CONCERNED ABOUT HIS DAUGHTER ALSO NAMED FLORA, FORGING CHECKS. SHE LEFT A NUMBER [phone] FOR [facility].THIS PROCESS CONTROL PROGRAMMER NOTIFIED THE CHARGE NURSE, AND THE CASE MGR IS BEING UPDATED. I WENT TO GIVE THIS INFORMATION TO THE PATIENT, HOWEVER HIS DAUGHTER FLORA AND HIS ARE VISITING AT THIS TIME. HE WILL BE NOTIFIED SOON POSSIBLE.
[2021-06-09 14:07] LABS: A/G RATIO 0.8 (0.7-1.7); ALBUMIN 2.1 g/dL (2.9-4.4); ALPHA-1-GLOBULIN 0.5 g/dL (0.0-0.4); ALPHA-2-GLOBULIN 0.8 g/dL (0.4-1.0); BETA GLOBULIN 0.8 g/dL (0.7-1.3); GAMMA GLOBULIN 0.8 g/dL (0.4-1.8); GLOBULIN, TOTAL 2.8 g/dL (2.2-3.9); M-SPIKE Not Observed g/dL (Not Observed); PROTEIN, TOTAL, SERUM 4.9 g/dL (6.0-8.5)
--- NOTE | 2021-06-09 14:56 | NUR ---
AFTER THE PATIENTS DAUGHTER SRIDHAR AND PATSY MOM LEFT, THEY CAUGHT THIS INFANTRYMAN IN THE HALLWAY REQUESTING TO MAKE THE PATIENT A CONFIDENTIAL PATIENT. THEY STATED THEY DIDN'T WANT INFORMATION ABOUT HIM GOING OUT TO ANYONE ELSE. DAUGHTER SRIDHAR STATED THAT THEY SIGNED POWER OF ATTY PAPERS ON THE PATIENT TODAY. I SPOKE WITH THE PATIENT. HE WANTS TO BE ABLE TO COMMUNICATE WITH HIS WET COTTON FEEDER (ALSO NAMED SRIDHAR), BUT IS OKAY WITH BEING A CONFIDENTIAL PATIENT LONG HE CAN GIVE HER THE PASSWORD SO THAT SHE CAN TALK WITH HIM. THE PATIENT STATED THAT HE IS AWARE THAT HIS DAUGHTER SRIDHAR MAY BE USING HIS CHECKING ACCOUNT (WITHOUT PERMISSION). HE WAS ABLE TO CONTACT JARRETT AT [employer]. HE STATED THAT HE IS THE ONLY ONE WHO SHOULD BE ABLE TO WRITE CHECK OUT OF HIS ACCOUNT.
--- NOTE | 2021-06-09 19:07 | NUR ---
PATIENT HAD A BM THIS SHIFT! HE WAS NPO THROUGHOUT THE MORNING, AND THEN ADVANCED TO A CLEAR LIQUID DIET. HE ATE SOME JELLO, AND DRANK APPLE JUICE. PATIENT WAS PROVIDED WITH MIRALAX THIS AM, WELL MILK OF MAG THIS AFTERNOON. BM WAS GREEN, SOFT AND A GOOD AMOUNT.
--- NOTE | 2021-06-10 02:01 | NUR ---
PARTY PLAN SALES CONSULTANT SUMMARY PATIENT HAD A FAIR SHIFT. HIS VITALS WERE STABLE. HE WAS REPOSITIONED TO HELP WITH PAIN. PLACED ON CPAP. WILL CONTINUE TO MONITOR HIM.
[2021-06-10 05:00] LABS: Calcium, Blood 8.5 mg/dL (8.5-10.1); Creatinine, Blood 1.23 mg/dL (0.60-1.20); Potassium, Blood 3.7 mmol/L (3.5-5.5)
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
--- NOTE | 2021-06-11 02:49 | NUR ---
DREDGE PIPE INSTALLER SUMMARY PATIENT HAD A FAIR SHIFT. WITH STABLE V/S. HE DID NOT LODGE ANY NEW COMLAINTS THIS NIGHT. WAS REPOSITIONED SHOULD. WILL CONTINUE TO MONITOR HIM.
[2021-06-11 05:09] LABS: Hematocrit 28.3 % (37.0-53.0); Hemoglobin 9.2 g/dL (13.5-17.5); Mean Corpuscular HGB Conc 32.5 g/dL (31.5-36.5); Mean Corpuscular Volume 95 fL (80-100); Mean Platelet Volume 10.8 fL (9.1-12.4); Platelet Count 268 K/mm3 (150-400); RDW Coefficient Variation 14.4 % (11.7-14.2); RDW Standard Deviation 49.4 fL (35.1-46.3); Red Blood Cell Count 2.97 M/mm3 (4.30-5.90); White Blood Cell Count 15.34 K/mm3 (4.00-11.30)
[2021-06-11 05:33] LABS: Anion Gap 5 mmol/L (6-16); Blood Urea Nitrogen 36 mg/dL (8-24); CO2, Blood 24 mmol/L (21-32); Calcium, Blood 8.5 mg/dL (8.5-10.1); Chloride, Blood 118 mmol/L (98-108); Creatinine, Blood 1.06 mg/dL (0.60-1.20); Glomerular Filtration Rate >60 (60-); Glucose, Blood 153 mg/dL (70-99); Potassium, Blood 3.9 mmol/L (3.5-5.5); Sodium, Blood 147 mmol/L (136-145)
[2021-06-11 19:56] LABS: Adenovirus F 40/41 Not Detected (NOT DETECT); Astrovirus Not Detected (NOT DETECT); Campylobacter Sp Not Detected (NOT DETECT); Cryptosporidium Not Detected (NOT DETECT); Cyclospora Cayetanensis Not Detected (NOT DETECT); E. Coli O157 Not Detected (NOT DETECT); Entamoeba Histolytica Not Detected (NOT DETECT); Enteroaggregative E. coli-EAEC Not Detected (NOT DETECT); Enteropathogenic E. coli-EPEC Not Detected (NOT DETECT); Enterotoxigenic E. coli-ETEC Not Detected (NOT DETECT); Giardia Lamblia Not Detected (NOT DETECT); Norovirus GI/GII Not Detected (NOT DETECT); Plesiomonas Shigelloides Not Detected (NOT DETECT); Rotavirus A Not Detected (NOT DETECT); Salmonella Sp Not Detected (NOT DETECT); Sapovirus Not Detected (NOT DETECT); Shiga Toxin-prod E. coli-STEC Not Detected (NOT DETECT); Shigella/Enteroin E. coli-EIEC Not Detected (NOT DETECT); Vibrio Cholerae Not Detected (NOT DETECT); Vibrio Sp Not Detected (NOT DETECT); Yersinia Enterocolitica Not Detected (NOT DETECT)
[2021-06-12 05:14] LABS: Hematocrit 29.5 % (37.0-53.0); Hemoglobin 9.4 g/dL (13.5-17.5); Mean Corpuscular HGB Conc 31.9 g/dL (31.5-36.5); Mean Corpuscular Volume 97 fL (80-100); Mean Platelet Volume 11.1 fL (9.1-12.4); Platelet Count 263 K/mm3 (150-400); RDW Coefficient Variation 14.6 % (11.7-14.2); RDW Standard Deviation 50.4 fL (35.1-46.3); Red Blood Cell Count 3.03 M/mm3 (4.30-5.90); White Blood Cell Count 15.96 K/mm3 (4.00-11.30)
[2021-06-12 05:34] LABS: Anion Gap 3 mmol/L (6-16); Blood Urea Nitrogen 33 mg/dL (8-24); Bun/Creatinine Ratio 31.1 (12.0-20.0); CO2, Blood 25 mmol/L (21-32); Calcium, Blood 8.5 mg/dL (8.5-10.1); Chloride, Blood 117 mmol/L (98-108); Creatinine, Blood 1.06 mg/dL (0.60-1.20); Glomerular Filtration Rate >60 (60-); Glucose, Blood 149 mg/dL (70-99); Potassium, Blood 4.3 mmol/L (3.5-5.5); Sodium, Blood 145 mmol/L (136-145)
--- NOTE | 2021-06-12 05:54 | NUR ---
Patient is alert and oriented x3 forgets situation. Left side weakness. Left arms needs assist, patient has very limited motion. Q2 turns completed. No complains of pain. No SOB. Patient able to swallow medications. Call light within reach. Patient is incontinent in urine and bowel.
--- NOTE | 2021-06-13 06:27 | NUR ---
Patient is alert and oriented x3 forgetful and seldom talks to himself. Complains of right leg pain, PRN pain medication given. No signs of distress. Q2 turns completed. Patient is incontinent in bowel and urine. Positive CDIFF, patient had several loose bowels last night. Call light within reach.
[2021-06-13 08:46] LABS: BASOPHILS ABSOLUTE AUTO 0.12 K/mm3 (0.00-0.23); BASOPHILS PERCENT AUTO 1 % (0-2); EOSINOPHILS ABSOLUTE AUTO 0.48 K/mm3 (0.00-0.68); EOSINOPHILS PERCENT AUTO 3 % (0-6); Hematocrit 30.7 % (37.0-53.0); Hemoglobin 9.6 g/dL (13.5-17.5); IMMATURE GRAN ABSOLUTE AUTO 1.78 K/mm3 (0.00-0.10); IMMATURE GRAN PERCENT AUTO 12 % (0-1); LYMPHOCYTES ABSOLUTE AUTO 1.56 K/mm3 (0.84-5.20); LYMPHOCYTES PERCENT AUTO 11 % (21-46); MONOCYTES ABSOLUTE AUTO 0.91 K/mm3 (0.16-1.47); MONOCYTES PERCENT AUTO 6 % (4-13); Mean Corpuscular HGB 30.8 pg (26.0-34.0); Mean Corpuscular HGB Conc 31.3 g/dL (31.5-36.5); Mean Corpuscular Volume 98 fL (80-100); Mean Platelet Volume 11.2 fL (9.1-12.4); NEUTROPHILS ABSOLUTE AUTO 9.62 K/mm3 (1.96-9.15); NEUTROPHILS PERCENT AUTO 67 % (41-73); Platelet Count 246 K/mm3 (150-400); RDW Coefficient Variation 14.9 % (11.7-14.2); RDW Standard Deviation 51.8 fL (35.1-46.3); Red Blood Cell Count 3.12 M/mm3 (4.30-5.90); White Blood Cell Count 14.47 K/mm3 (4.00-11.30)
[2021-06-13 09:12] LABS: Anion Gap 4 mmol/L (6-16); Blood Urea Nitrogen 28 mg/dL (8-24); Bun/Creatinine Ratio 26.7 (12.0-20.0); CO2, Blood 24 mmol/L (21-32); Calcium, Blood 8.4 mg/dL (8.5-10.1); Chloride, Blood 116 mmol/L (98-108); Creatinine, Blood 1.05 mg/dL (0.60-1.20); Glomerular Filtration Rate >60 (60-); Glucose, Blood 111 mg/dL (70-99); Phosphorus, Blood 2.8 mg/dL (2.5-4.9); Potassium, Blood 4.3 mmol/L (3.5-5.5); Sodium, Blood 144 mmol/L (136-145)
[2021-06-13 11:30] LABS: BAND PERCENT MAN 6 % (0-8); BASOPHILS ABSOLUTE MAN 0.14 K/mm3 (0.00-0.23); BASOPHILS PERCENT MAN 1 % (0-2); EOSINOPHILS ABSOLUTE MAN 0.14 K/mm3 (0.00-0.68); EOSINOPHILS PERCENT MAN 1 % (0-6); LYMPHOCYTES ABSOLUTE MAN 0.72 K/mm3 (0.84-5.20); LYMPHOCYTES PERCENT MAN 5 % (21-46); MONOCYTES ABSOLUTE MAN 0.57 K/mm3 (0.16-1.47); MONOCYTES PERCENT MAN 4 % (4-13); MYELOCYTE ABSOLUTE MAN 0.86 K/mm3 (0.00-0.00); MYELOCYTE PERCENT MAN 6 % (0-0); NEUTROPHILS ABSOLUTE MAN 11.86 K/mm3 (1.96-9.15); PLASMA CELL ABSOLUTE MAN 0.14 K/mm3 (0.00-0.00); PLASMA CELLS PERCENT MAN 1 % (0-0); SEG NEUTROPHILS PERCENT MAN 76 % (41-73); TOTAL CELLS COUNTED 100
--- NOTE | 2021-06-14 05:07 | NUR ---
Patient is alert and oriented x3, sometimes forgetful. Hard of hearing. Able to stand up with assist. Patient has 5/10 generalized pain, PRN pain medication given. No signs of distress. Patient slept most of the night. Myers catheter in place, good output. Urine is light yellow. Call light within reach.
[2021-06-14 05:44] LABS: Hematocrit 30.7 % (37.0-53.0); Hemoglobin 9.6 g/dL (13.5-17.5); Mean Corpuscular HGB Conc 31.3 g/dL (31.5-36.5); Mean Corpuscular Volume 99 fL (80-100); Mean Platelet Volume 11.6 fL (9.1-12.4); Platelet Count 230 K/mm3 (150-400); RDW Coefficient Variation 15.1 % (11.7-14.2); RDW Standard Deviation 52.2 fL (35.1-46.3); White Blood Cell Count 14.05 K/mm3 (4.00-11.30)
[2021-06-14 06:05] LABS: Anion Gap 5 mmol/L (6-16); Blood Urea Nitrogen 24 mg/dL (8-24); CO2, Blood 25 mmol/L (21-32); Calcium, Blood 8.4 mg/dL (8.5-10.1); Chloride, Blood 113 mmol/L (98-108); Creatinine, Blood 0.96 mg/dL (0.60-1.20); Glomerular Filtration Rate >60 (60-); Glucose, Blood 97 mg/dL (70-99); Phosphorus, Blood 2.7 mg/dL (2.5-4.9); Potassium, Blood 4.5 mmol/L (3.5-5.5); Sodium, Blood 143 mmol/L (136-145)
[2021-06-14 06:26] LABS: BASOPHILS ABSOLUTE MAN 0.14 K/mm3 (0.00-0.23); BASOPHILS PERCENT MAN 1 % (0-2); EOSINOPHILS ABSOLUTE MAN 0.42 K/mm3 (0.00-0.68); EOSINOPHILS PERCENT MAN 3 % (0-6); LYMPHOCYTES ABSOLUTE MAN 0.84 K/mm3 (0.84-5.20); LYMPHOCYTES PERCENT MAN 6 % (21-46); METAMYELOCYTE ABSOLUTE MAN 0.42 K/mm3 (0.00-0.00); METAMYELOCYTE PERCENT MAN 3 % (0-0); MONOCYTES ABSOLUTE MAN 0.42 K/mm3 (0.16-1.47); MONOCYTES PERCENT MAN 3 % (4-13); MYELOCYTE ABSOLUTE MAN 0.84 K/mm3 (0.00-0.00); MYELOCYTE PERCENT MAN 6 % (0-0); NEUTROPHILS ABSOLUTE MAN 10.81 K/mm3 (1.96-9.15); PLASMA CELL ABSOLUTE MAN 0.14 K/mm3 (0.00-0.00); PLASMA CELLS PERCENT MAN 1 % (0-0); SEG NEUTROPHILS PERCENT MAN 77 % (41-73); TOTAL CELLS COUNTED 100
--- NOTE | 2021-06-15 05:05 | NUR ---
SHIFT SUMMARY A/O 2-3, PLEASANT AND COOPERATIVE WITH CARE. L. SIDED WEAKNESS, 2 MAX ASSIST WITH REPOSITIONING. CONDOM CATH IN PLACE. DENIES PAIN OR SOB. VSS, NO ACUTE CHANGES AT THIS TIME. VSS, NO ACUTE CHANGES AT THIS TIME. BED IN LOWEST POSITION WITH CALL LIGHT IN REACH. WILL CONTINUE TO MONITOR AND REPORT TO ONCOMING RN.
[2021-06-15 05:33] LABS: Hematocrit 30.2 % (37.0-53.0); Hemoglobin 9.7 g/dL (13.5-17.5); Mean Corpuscular HGB 31.5 pg (26.0-34.0); Mean Corpuscular HGB Conc 32.1 g/dL (31.5-36.5); Mean Corpuscular Volume 98 fL (80-100); Mean Platelet Volume 11.8 fL (9.1-12.4); Platelet Count 242 K/mm3 (150-400); RDW Coefficient Variation 15.2 % (11.7-14.2); RDW Standard Deviation 51.6 fL (35.1-46.3); Red Blood Cell Count 3.08 M/mm3 (4.30-5.90); White Blood Cell Count 13.12 K/mm3 (4.00-11.30)
[2021-06-15 06:05] LABS: Albumin, Blood 2.1 g/dL (3.4-5.0); Anion Gap 2 mmol/L (6-16); Blood Urea Nitrogen 18 mg/dL (8-24); Bun/Creatinine Ratio 19.4 (12.0-20.0); CO2, Blood 26 mmol/L (21-32); Calcium, Blood 8.2 mg/dL (8.5-10.1); Chloride, Blood 113 mmol/L (98-108); Creatinine, Blood 0.93 mg/dL (0.60-1.20); Glomerular Filtration Rate >60 (60-); Glucose, Blood 99 mg/dL (70-99); Phosphorus, Blood 2.7 mg/dL (2.5-4.9); Potassium, Blood 4.2 mmol/L (3.5-5.5); Sodium, Blood 141 mmol/L (136-145)
[2021-06-15 06:06] LABS: BAND PERCENT MAN 2 % (0-8); BASOPHILS PERCENT MAN 0 % (0-2); EOSINOPHILS ABSOLUTE MAN 0.13 K/mm3 (0.00-0.68); EOSINOPHILS PERCENT MAN 1 % (0-6); LYMPHOCYTES ABSOLUTE MAN 1.44 K/mm3 (0.84-5.20); LYMPHOCYTES PERCENT MAN 11 % (21-46); METAMYELOCYTE ABSOLUTE MAN 0.52 K/mm3 (0.00-0.00); METAMYELOCYTE PERCENT MAN 4 % (0-0); MONOCYTES ABSOLUTE MAN 0.52 K/mm3 (0.16-1.47); MONOCYTES PERCENT MAN 4 % (4-13); MYELOCYTE ABSOLUTE MAN 0.52 K/mm3 (0.00-0.00); MYELOCYTE PERCENT MAN 4 % (0-0); NEUTROPHILS ABSOLUTE MAN 9.97 K/mm3 (1.96-9.15); SEG NEUTROPHILS PERCENT MAN 74 % (41-73); TOTAL CELLS COUNTED 100
--- NOTE | 2021-06-15 18:44 | NUR ---
SUMMARY- PT A/O X3, KNOWS HIS LIMITS. DEPENDANT IN CARE. INCONT B&B. INDERJIT BROWN SEMIFORMED STOOLS, RECOVERING FROM C-DIFF. TELE SR 60'S. ROOM AIR, LUNGS CLEAR, CONT PULSE OX, SATS 95-99%. TOLERATING FOOD AND FLUIDS. SAT AT THE EDGE OF BED WITH OT SUPPORTING HIM TODAY. BLOOD SUGARS STABLE.
[2021-06-16 05:16] LABS: Hematocrit 29.7 % (37.0-53.0); Hemoglobin 9.6 g/dL (13.5-17.5); Mean Corpuscular HGB 31.5 pg (26.0-34.0); Mean Corpuscular HGB Conc 32.3 g/dL (31.5-36.5); Mean Corpuscular Volume 97 fL (80-100); Mean Platelet Volume 12.1 fL (9.1-12.4); Platelet Count 222 K/mm3 (150-400); RDW Coefficient Variation 15.3 % (11.7-14.2); RDW Standard Deviation 51.1 fL (35.1-46.3); Red Blood Cell Count 3.05 M/mm3 (4.30-5.90); White Blood Cell Count 12.24 K/mm3 (4.00-11.30)
[2021-06-16 05:53] LABS: Albumin, Blood 2.1 g/dL (3.4-5.0); Anion Gap 4 mmol/L (6-16); Blood Urea Nitrogen 14 mg/dL (8-24); Bun/Creatinine Ratio 15.8 (12.0-20.0); CO2, Blood 26 mmol/L (21-32); Calcium, Blood 8.3 mg/dL (8.5-10.1); Chloride, Blood 110 mmol/L (98-108); Creatinine, Blood 0.89 mg/dL (0.60-1.20); Glomerular Filtration Rate >60 (60-); Glucose, Blood 100 mg/dL (70-99); Phosphorus, Blood 2.8 mg/dL (2.5-4.9); Potassium, Blood 4.1 mmol/L (3.5-5.5); Sodium, Blood 140 mmol/L (136-145)
[2021-06-16 05:55] LABS: BAND PERCENT MAN 5 % (0-8); BASOPHILS ABSOLUTE MAN 0.24 K/mm3 (0.00-0.23); BASOPHILS PERCENT MAN 2 % (0-2); EOSINOPHILS ABSOLUTE MAN 0.36 K/mm3 (0.00-0.68); EOSINOPHILS PERCENT MAN 3 % (0-6); LYMPHOCYTES ABSOLUTE MAN 0.97 K/mm3 (0.84-5.20); LYMPHOCYTES PERCENT MAN 8 % (21-46); METAMYELOCYTE ABSOLUTE MAN 0.24 K/mm3 (0.00-0.00); METAMYELOCYTE PERCENT MAN 2 % (0-0); MONOCYTES ABSOLUTE MAN 0.73 K/mm3 (0.16-1.47); MONOCYTES PERCENT MAN 6 % (4-13); MYELOCYTE ABSOLUTE MAN 0.12 K/mm3 (0.00-0.00); MYELOCYTE PERCENT MAN 1 % (0-0); NEUTROPHILS ABSOLUTE MAN 9.54 K/mm3 (1.96-9.15); SEG NEUTROPHILS PERCENT MAN 73 % (41-73); TOTAL CELLS COUNTED 100
--- NOTE | 2021-06-16 05:55 | NUR ---
PT IS A/OX3. TELE: SB/55. CONT PULSE OX: 92-96% ON RA. THE PT WORE CPAP THIS NOC SHIFT. HE REMAINS ON ISOLATION FOR C-DIFF. STOOLS ARE LESS FREQUENT. HE DID NOT NEED COVERAGE FOR SS INSULIN. PT CONTINUES TO BE A PLACEMENT FOR [facility]. BED IS IN THE LOWEST POSITION AND WE'LL CONTINUE TO MONITOR THE REMAINDER OF THE SHIFT.
--- NOTE | 2021-06-16 08:00 | NUR ---
pt laying in bed watching tv, cooperative with care, follows commands, is forgetful, needs cueing, for some things, lungs are clear dim in bases, on r/a, resp even and unlabored, no cough noted, hrr, running sb in the 50's, will hold metoprolol this am, voids via condom cath, skin has some ecchymosis, otherwise c/d/i, left side is flacid, iv to rfa s.l. jovanny, swallows without diff, except po meds, he chews even when given with applesauce, call light in reach.
--- NOTE | 2021-06-16 18:16 | NUR ---
no acute changes this shift, have repositioned him and changed him as needed. call light in reach.
[2021-06-17 05:08] LABS: BASOPHILS ABSOLUTE AUTO 0.07 K/mm3 (0.00-0.23); BASOPHILS PERCENT AUTO 1 % (0-2); EOSINOPHILS ABSOLUTE AUTO 0.36 K/mm3 (0.00-0.68); EOSINOPHILS PERCENT AUTO 3 % (0-6); Hematocrit 30.6 % (37.0-53.0); IMMATURE GRAN ABSOLUTE AUTO 0.49 K/mm3 (0.00-0.10); IMMATURE GRAN PERCENT AUTO 4 % (0-1); LYMPHOCYTES ABSOLUTE AUTO 1.76 K/mm3 (0.84-5.20); LYMPHOCYTES PERCENT AUTO 16 % (21-46); MONOCYTES ABSOLUTE AUTO 0.97 K/mm3 (0.16-1.47); MONOCYTES PERCENT AUTO 9 % (4-13); Mean Corpuscular HGB 31.7 pg (26.0-34.0); Mean Corpuscular HGB Conc 32.7 g/dL (31.5-36.5); Mean Corpuscular Volume 97 fL (80-100); Mean Platelet Volume 12.1 fL (9.1-12.4); NEUTROPHILS ABSOLUTE AUTO 7.66 K/mm3 (1.96-9.15); NEUTROPHILS PERCENT AUTO 68 % (41-73); Platelet Count 218 K/mm3 (150-400); RDW Coefficient Variation 15.5 % (11.7-14.2); Red Blood Cell Count 3.15 M/mm3 (4.30-5.90); White Blood Cell Count 11.31 K/mm3 (4.00-11.30)
[2021-06-17 05:34] LABS: Albumin, Blood 2.1 g/dL (3.4-5.0); Anion Gap 5 mmol/L (6-16); Blood Urea Nitrogen 13 mg/dL (8-24); Bun/Creatinine Ratio 14.1 (12.0-20.0); CO2, Blood 26 mmol/L (21-32); Calcium, Blood 8.6 mg/dL (8.5-10.1); Chloride, Blood 109 mmol/L (98-108); Creatinine, Blood 0.92 mg/dL (0.60-1.20); Glomerular Filtration Rate >60 (60-); Glucose, Blood 98 mg/dL (70-99); Phosphorus, Blood 2.8 mg/dL (2.5-4.9); Potassium, Blood 4.1 mmol/L (3.5-5.5); Sodium, Blood 140 mmol/L (136-145)
--- NOTE | 2021-06-17 05:57 | NUR ---
SHIFT SUMMARY: PT IS A/OX3. TELE: . HIS LEFT SIDE IS FLACCID, PT CAN USE RIGHT SIDE TO ASSIST WITH ROLLING WHEN REPOSITIONING. PT WORE CPAP THIS NOC SHIFT. STILL WAITING FOR A CT SNF BED. WE'LL CONTINUE TO MONITOR THE REST OF THE SHIFT.
--- NOTE | 2021-06-17 18:11 | NUR ---
END OF SHIFT SUMMARY: NO ACUTE CHANGES TO PT STATUS THIS SHIFT. VITALS STABLE, CBGS WNL, NO SSI NEEDED. PT INCONTINENT OF B/B. PT VISITED WITH GRANDDAUGHTER TODAY. WILL CONTINUE PLAN OF CARE, AWAITING PLACEMENT.
[2021-06-18 06:06] LABS: BASOPHILS ABSOLUTE AUTO 0.09 K/mm3 (0.00-0.23); BASOPHILS PERCENT AUTO 1 % (0-2); EOSINOPHILS ABSOLUTE AUTO 0.33 K/mm3 (0.00-0.68); EOSINOPHILS PERCENT AUTO 3 % (0-6); Hematocrit 30.2 % (37.0-53.0); Hemoglobin 9.4 g/dL (13.5-17.5); IMMATURE GRAN PERCENT AUTO 3 % (0-1); LYMPHOCYTES ABSOLUTE AUTO 1.61 K/mm3 (0.84-5.20); LYMPHOCYTES PERCENT AUTO 15 % (21-46); MONOCYTES ABSOLUTE AUTO 1.01 K/mm3 (0.16-1.47); MONOCYTES PERCENT AUTO 9 % (4-13); Mean Corpuscular HGB 30.8 pg (26.0-34.0); Mean Corpuscular HGB Conc 31.1 g/dL (31.5-36.5); Mean Corpuscular Volume 99 fL (80-100); Mean Platelet Volume 12.2 fL (9.1-12.4); NEUTROPHILS ABSOLUTE AUTO 7.51 K/mm3 (1.96-9.15); NEUTROPHILS PERCENT AUTO 69 % (41-73); Platelet Count 221 K/mm3 (150-400); RDW Coefficient Variation 15.7 % (11.7-14.2); RDW Standard Deviation 54.8 fL (35.1-46.3); Red Blood Cell Count 3.05 M/mm3 (4.30-5.90); White Blood Cell Count 10.85 K/mm3 (4.00-11.30)
--- NOTE | 2021-06-18 06:07 | NUR ---
SHIFT SUMMARY: PT IS A/OX3-4. RA. TELE: SB/53. PT WAS TURNED/REPOSITIONED Q2. PT WEARS CPAP AT NIGHT. PT CONTINUES TO BE A PLACEMENT TO THE [facility]. NO OTHER CHANGES TO REPORT. WE'LL CONTINUE MONITOR THE REST OF THE SHIFT.
[2021-06-18 06:26] LABS: Albumin, Blood 2.2 g/dL (3.4-5.0); Anion Gap 3 mmol/L (6-16); Blood Urea Nitrogen 15 mg/dL (8-24); Bun/Creatinine Ratio 16.4 (12.0-20.0); CO2, Blood 28 mmol/L (21-32); Calcium, Blood 8.8 mg/dL (8.5-10.1); Chloride, Blood 110 mmol/L (98-108); Creatinine, Blood 0.92 mg/dL (0.60-1.20); Glomerular Filtration Rate >60 (60-); Glucose, Blood 112 mg/dL (70-99); Phosphorus, Blood 2.9 mg/dL (2.5-4.9); Potassium, Blood 4.2 mmol/L (3.5-5.5); Sodium, Blood 141 mmol/L (136-145)
--- NOTE | 2021-06-18 18:36 | NUR ---
END OF SHIFT SUMMARY: NO ACUTE CHANGES TO PT STATUS. VITALS STABLE. SHASTA-AREA RED, D/T MOISTURE. NO OTHER CHANGES THIS SHIFT. AWAITING PLACEMENT.
--- NOTE | 2021-06-19 03:50 | NUR ---
SHIFT SUMMARY NO ACUTE CHANGES TO PT CONDITION. PT CONTINUES TO BE INCONTINENT. ON CDIFF PRECAUTIONS. PT SLEEPING OFF AND ON TONIGHT. PT GETS SLIGHTLY MORE CONFUSED AFTER JUST WAKING UP. CALL LIGHT IS WITHIN HIS REACH. WILL CONTINUE TO MONITOR.
--- NOTE | 2021-06-19 15:17 | NUR ---
SHIFT SUMMARY: PT A/O X 3 BEDREST. L SIDE CONTINUES TO BE COMPLETELY FLACCID. PT URINATING WELL, NO BM TODAY. PT DENIES PAIN, NO ACUTE CONCERNS AT THIS TIME. HANDOFF REPORT GIVEN TO ANUPAMA DICKERSON.
--- NOTE | 2021-06-20 05:01 | NUR ---
SHIFT SUMMARY: PT IS A/OX3. HE DID SEEM MORE CONFUSED THIS NOC SHIFT. RA. CPAP @ NIGHT. SKIN INTEGRITY IS INTACT; SMALL AMOUNT OF REDNESS TO BUTTOCKS. PT IS INCONTINENT OF BLADDER/BOWEL. NO BM THIS SHIFT. PT IS A PLACEMENT AT THIS TIME. WE'LL CONTINUE TO MONITOR.
[2021-06-20 09:22] LABS: Percent Saturation 24.8 % (20.0-50.0)
[2021-06-20 17:45] LABS: Influenza A, PCR NEGATIVE (NEGATIVE); Influenza B, PCR NEGATIVE (NEGATIVE); Resp Syncytial Virus, PCR NEGATIVE (NEGATIVE); SARS-Cov-2 (COVID-19) PCR, MMC NEGATIVE (NEGATIVE)
--- NOTE | 2021-06-20 18:34 | NUR ---
SHIFT SUMMARY: PT A/O X 3, ANGELI TO CHAIR. PLEASANT AND COOPERATIVE WITH CARE. PT WAS UP TO CHAIR TODAY APPROX 3 HOURS AND DID WELL. PT EATING WELL TODAY, MUCH BETTER THAN YESTERDAY. HELD METOPROLOL THIS AM DUE TO HR OF 50. ALSO HELD HYDARLAZINE IN THE AFTERNOON DUE TO HR STILL LESS THAN 60. PT WAS NOT SYMPTOMATIC. PLAN IS FOR PT TO DISCHARGE TO SNF TOMORROW. COVID TEST COMPLETED AND WAS NEGATIVE.
--- NOTE | 2021-06-21 05:07 | NUR ---
SHIFT SUMMARY AOX3-FORGETFUL @TIMES. SLOW TO RESPOND. PLEASENT & COOPERATIVE. DENIES PAIN, N/V OR DYSPNEA. VSS. WORE CPAP T/O NIGHT, SPO2 >90%. HS CBG @128, 10U LANTUS GIVEN PER EMAR. NO BM THIS SHIFT. INCONT OF URINE, CHANGED PRN & TURNED Q2H. AWAITING PLACEMENT. CALL LIGHT IN PLACE. WCTM.
[2021-06-21] MEDS ORDERED: NORVASC10 MG PO (08:54)
[2021-06-21] MEDS ORDERED: DOCUZEN 8.6-501 EACH PO (08:56)
[2021-06-21] MEDS ORDERED: VITAMIN D31000 UNI1 PO (08:56)
[2021-06-21] MEDS ORDERED: VISBIOME 112.51 EACH PO (08:57)
[2021-06-21] MEDS ORDERED: METO50ER PO (08:58)
[2021-06-21] MEDS ORDERED: INSULIN GL100 UNIT/2 SC (08:59)
--- NOTE | 2021-06-21 11:16 | NUR ---
DISCHARGE SUMMARY PT DISCHARGED TO [facility] AND TRANSPORTED BY [facility] DUE TO L SIDE FLACCIDITY. NO BM'S THIS SHIFT. VSS. PT STATES THAT DAUGHTER NEEDS TO BRING HIM HIS WHEELCHAIR AND HOME CPAP ONCE HE ARRIVES AT FACILITY. WILL CALL REPORT TO [facility].
== END 2021-06-21 10:54 | DRG 872 ==
LOC: ER 12:14 → MEDS 15:11
PROVIDERS: Family Medicine; Internal Medicine; Student in an Organized Health Care Education/Training Program; ADMIT Internal Medicine
DX: A41.9 Sepsis, unspecified organism (principal); N17.9 Acute kidney failure, unspecified; Z68.41 Body mass index [BMI] 40.0-44.9, adult; K56.7 Ileus, unspecified; A04.72 Enterocolitis due to Clostridium difficile, not specified as recurrent; I69.354 Hemiplegia and hemiparesis following cerebral infarction affecting left non-dominant side; R65.20 Severe sepsis without septic shock; D63.1 Anemia in chronic kidney disease; I12.9 Hypertensive chronic kidney disease with stage 1 through stage 4 chronic kidney disease, or unspecified chronic kidney disease; J44.9 Chronic obstructive pulmonary disease, unspecified; E11.22 Type 2 diabetes mellitus with diabetic chronic kidney disease; N18.30 Chronic kidney disease, stage 3 unspecified; G47.33 Obstructive sleep apnea (adult) (pediatric); E66.9 Obesity, unspecified; N40.0 Benign prostatic hyperplasia without lower urinary tract symptoms; F03.90 Unspecified dementia, unspecified severity, without behavioral disturbance, psychotic disturbance, mood disturbance, and anxiety; F43.10 Post-traumatic stress disorder, unspecified; I48.0 Paroxysmal atrial fibrillation; E86.0 Dehydration; I25.10 Atherosclerotic heart disease of native coronary artery without angina pectoris; Z99.89 Dependence on other enabling machines and devices; I25.2 Old myocardial infarction; Z95.1 Presence of aortocoronary bypass graft; Z87.891 Personal history of nicotine dependence; Z88.8 Allergy status to other drugs, medicaments and biological substances; Z79.899 Other long term (current) drug therapy
CPT/HCPCS: 0097U; 0241U; 36415; 70450; 71046; 74018; 80048; 80053; 80069; 82728; 82784; 82947; 83540; 83550; 83880; 84165; 84484; 85025; 85027; 87324; 93005; 93010; 94640; 94660; 94664; 94760; 94762; 97110; 97112; 97129; 97130; 97163; 97166; 97530; 97535; 99285-25; A9270; J0696; J1170; J1644; J1815; J2405; J2765; J7030